=== PATIENT | male | born 1950 | race Caucasian/White ===

== ENCOUNTER 2024-07-13 08:00 | Day surgery (SDC) | payer OTHER ==
[2024-07-09 12:39] VITALS: BMI 31.1
[2024-07-13] MEDS ORDERED: PROPOFOL 160 ML ONE (08:08)
[2024-07-13] MEDS ORDERED: LIDOCAINE HCL/PF 2% SDV 5ML VIAL ONE (08:08)
[2024-07-13 09:24] VITALS: RESP 16; TEMP 97.4
[2024-07-13 09:34] VITALS: BP 136/72; PULSE 66
== END 2024-07-13 09:40 | disposition home or self-care (01) ==
LOC: FASU-ENDO 08:00
PROVIDERS: ATTEND Internal Medicine Gastroenterology
PROC: 0DJD8ZZ Inspection of Lower Intestinal Tract, Via Natural or Artificial Opening Endoscopic (ICD-10-PCS; principal; 2024-07-13 08:37)
DX: Z12.11 Encounter for screening for malignant neoplasm of colon (principal)
CPT/HCPCS: 82962